=== PATIENT | male | born 1955 | race Caucasian/White ===

== ENCOUNTER 2016-09-20 13:06 | Observation (INO) | payer OTHER ==
--- NOTE | 2016-09-20 13:28 | CPEKG ---
Heart Rate: 58 RR Interval: 1034 P-R Interval: 220 QRSD Interval: 92 QT Interval: 424 QTC Interval: 417 P Emmet: -6 QRS Emmet: 9 T Wave Emmet: 12 EKG Severity - ABNORMAL ECG - EKG Impression: SINUS RHYTHM EKG Impression: FIRST DEGREE AV BLOCK Electronically Signed By: Volodymyr Tobin 20-Sep-2016 20:59:09
[2016-09-20 13:39] LABS: % IMMATURE GRANULYOCYTES 0.2 % (0.0-1.1); ABSOLUTE IMMATURE GRANULOCYTES 0.01 10^3/uL (0.00-0.10); ADD DIFF? NO; ADD MORPH? NO; ADD SCAN? NO; ATYPICAL LYMPHOCYTE FLAG 0 (0-99); FRAGMENT RBC FLAG 0 (0-99); HEMATOCRIT 34.2 % (40.0-51.0); LEFT SHIFT FLG 0 (0-99); LIPEMIA HEMOLYSIS FLAG 70 (0-99); MEAN CELL HEMOGLOBIN 21.3 pg (27.9-34.1); MEAN CELL HEMOGLOBIN CONCENTR. 29.2 g/dL (32.4-36.7); MEAN CELL VOLUME 72.8 fL (81.5-99.8); MEAN PLATELET VOLUME 9.2 fL (8.7-11.7); PLATELET CLUMPS FLAG 10 (0-99); PLATELET COUNT 307 10^3/uL (150-400); RED CELL DISTRIBUTION WIDTH 17.1 % (11.5-15.2)
[2016-09-20] MEDS ORDERED: NS 1,000 ML IV ONE (13:45)
--- NOTE | 2016-09-20 13:51 | EDPHY ---
H & P Stated Complaint: Vertigo this morning,sent from Dr Santana office for eval HPI/ROS: HPI CHIEF COMPLAINT: Lightheadedness, shortness of breath, dyspnea on exertion HISTORY OF PRESENT ILLNESS: This patient very pleasant 61-year-old male, significant past medical history for coronary artery disease with 3 stents, hyperlipidemia, he presents emergency room after being evaluated by his primary care doctor. States for the past week every time he goes to get up he feels lightheaded. He states this lasted about mid afternoon. When he describes lightheadedness he means that he feels like he is going to pass out. He denies chest pain. He has noticed more shortness of breath than normal. And some dyspnea on exertion. Denies pleuritic pain. Chest pain denies nausea, diaphoresis, numbness or tingling. Denies focal weakness. Denies headache or neck pain. Past Medical History: Coronary artery disease with stents, hyperlipidemia Past Surgical History: PTCA Social History: Denies daily use drugs alcohol tobacco products Family History: Noncontributory Primary care doctor Dr. Hector BENTLEY REVIEW OF SYSTEMS: A comprehensive 10 point review of systems is otherwise negative aside from elements mentioned in the history of present illness. Exam Constitutional appears well nontoxic triage nursing summary reviewed, vital signs reviewed, awake/alert. Eyes normal conjunctivae and sclera, EOMI, PERRLA. HENT normal inspection, atraumatic, moist mucus membranes, no epistaxis, neck supple/ no meningismus, no raccoon eyes. Respiratory clear to auscultation bilaterally, normal breath sounds, no respiratory distress, no wheezing. Cardiovascular rate normal, regular rhythm, no murmur, no edema, distal pulses normal. Gastrointestinal soft, non-tender, no rebound, no guarding, normal bowel sounds, no distension, no pulsatile mass. Genitourinary no CVA tenderness. Musculoskeletal no midline vertebral tenderness, full range of motion, no calf swelling, no tenderness of extremities, no meningismus, good pulses, neurovascularly intact. Skin pink, warm, & dry, no rash, skin atraumatic. Neurologic awake, alert and oriented x 3, AAOx3, moves all 4 extremities equally, motor intact, sensory intact, CN II-XII intact, normal cerebellar, normal vision, normal speech. Psychiatric normal mood/affect. Heme/Lymph/Immune no lymphadenopathy. Differential Diagnosis: Includes but is not limited: ACS, pulmonary embolism, pneumonia, pulmonary edema, volume overload, electrolyte disturbance, dehydration, infection Medical Decision Making: Plan for this patient full property assessment monitor, EKG, troponin, chest x-ray, D-dimer, BNP. Evaluate for lightheadedness and dyspnea on exertion. Re-evaluation: 1448: EKG interpretation by me on record in [employer] system. Impression time of EKG 1325, sinus rhythm rate of 58, first-degree AV block present. MT interval 220. However there is T-wave inversions in V1, V2 V3 that are new compared to previous EKGs. 1518: This patient has no chest pain but dyspnea on exertion and lightheadedness. With slight changes in his EKG with precordial leads V1 V2 V3 with biphasic T-waves that are new from his previous EKG. This patient will need to be admitted for chest pain evaluation and rule out. I will notify Cardiology. I spoke with Dr. Godwin who agrees to admit this patient. 1519: I did update the patient about his findings he is resting comfortably. He is agreeable for admission. He understands reason for admission dyspnea on exertion, EKG change. Source: Patient - Personal History Current Tetanus Diphtheria and Acellular Pertussis (TDAP): Yes - Medical/Surgical History Hx Asthma: No Hx Chronic Respiratory Disease: No Hx Diabetes: No Hx Cardiac Disease: Yes Hx Renal Disease: No Hx Cirrhosis: No Hx Alcoholism: No Hx HIV/AIDS: No Hx Splenectomy or Spleen Trauma: No Other PMH: HYPERLIPIDEMIA. heart stents x 3 in 2016 - Social History Smoking Status: Former smoker Constitutional: Initial Vital Signs Heart Rate 64 09/20/16 13:08 Respiratory Rate 18 09/20/16 13:08 Blood Pressure 151/87 H 09/20/16 13:08 O2 Sat (%) 97 09/20/16 13:08 O2 Delivery Mode Room Air Allergies/Adverse Reactions: No Known Allergies Allergy (Verified 09/20/16 13:07) Home Medications: Medication Instructions Recorded Aspirin [Aspirin 81mg (*)] 81 mg PO DAILY #30 tab 05/25/15 Atorvastatin Calcium [Lipitor 40 40 mg PO DAILY #30 tab 05/25/15 mg (*)] Metoprolol Tartrate [Lopressor 25 25 mg PO BID #60 tab 03/03/16 mg (*)] Prasugrel HCl [Effient 10mg (*)] 10 mg PO DAILY #30 tab 05/25/15 Medical Decision Making - Diagnostics Imaging Results: Imaging Impressions Chest X-Ray 09/20/16 13:45 Impression: Chronic large hiatal hernia. - Data Points Laboratory Results: Laboratory Results 09/20/16 13:26 09/20/16 13:26 09/20/16 09/20/16 09/20/16 13:37 13:26 13:26 WBC 6.65 10^3/uL 10^3/uL (3.80-9.50) RBC 4.70 10^6/uL 10^6/uL (4.40-6.38) Hgb 10.0 g/dL L g/dL (13.7-17.5) Hct 34.2 % L % (40.0-51.0) MCV 72.8 fL L fL (81.5-99.8) MCH 21.3 pg L pg (27.9-34.1) MCHC 29.2 g/dL L g/dL (32.4-36.7) RDW 17.1 % H % (11.5-15.2) Plt Count 307 10^3/uL 10^3/uL (150-400) MPV 9.2 fL fL (8.7-11.7) Neut % (Auto) 50.8 % % (39.3-74.2) Lymph % (Auto) 34.4 % % (15.0-45.0) Elbert % (Auto) 12.2 % % (4.5-13.0) Eos % (Auto) 2.1 % % (0.6-7.6) Baso % (Auto) 0.3 % % (0.3-1.7) Nucleat RBC Rel Count 0.0 % % (0.0-0.2) Absolute Neuts (auto) 3.38 10^3/uL 10^3/uL (1.70-6.50) Absolute Lymphs (auto) 2.29 10^3/uL 10^3/uL (1.00-3.00) Absolute Monos (auto) 0.81 10^3/uL H 10^3/uL (0.30-0.80) Absolute Eos (auto) 0.14 10^3/uL 10^3/uL (0.03-0.40) Absolute Basos (auto) 0.02 10^3/uL 10^3/uL (0.02-0.10) Absolute Nucleated RBC 0.00 10^3/uL 10^3/uL (0-0.01) Immature Gran % 0.2 % % (0.0-1.1) Immature Gran # 0.01 10^3/uL 10^3/uL (0.00-0.10) PT INR APTT D-Dimer Sodium 136 mEq/L mEq/L (134-144) Potassium 4.3 mEq/L mEq/L (3.5-5.2) Chloride 103 mEq/L mEq/L (97-110) Carbon Dioxide 23 mEq/l mEq/l (22-31) Anion Gap 10 mEq/L mEq/L (8-16) BUN 16 mg/dL mg/dL (7-23) Creatinine 0.8 mg/dL mg/dL (0.7-1.3) Estimated GFR > 60 Glucose 82 mg/dL mg/dL (70-100) Calcium 9.4 mg/dL mg/dL (8.5-10.4) Magnesium Total Bilirubin Conjugated Bilirubin Unconjugated Bilirubin AST ALT Alkaline Phosphatase Creatine Kinase CK-MB (CK-2) Fraction Troponin I NT-Pro-B Natriuret Pep 65 pg/mL pg/mL (0-125) Total Protein Albumin Lipase 09/20/16 09/20/16 13:24 13:24 WBC RBC Hgb Hct MCV MCH MCHC RDW Plt Count MPV Neut % (Auto) Lymph % (Auto) Elbert % (Auto) Eos % (Auto) Baso % (Auto) Nucleat RBC Rel Count Absolute Neuts (auto) Absolute Lymphs (auto) Absolute Monos (auto) Absolute Eos (auto) Absolute Basos (auto) Absolute Nucleated RBC Immature Gran % Immature Gran # PT 12.8 SEC SEC (12.0-15.0) INR 0.97 (0.83-1.16) APTT 25.8 SEC SEC (23.0-38.0) D-Dimer < 0.27 ug/mLFEU ug/mLFEU (0.00-0.50) Sodium Potassium Chloride Carbon Dioxide Anion Gap BUN Creatinine Estimated GFR Glucose Calcium Magnesium 2.1 mg/dL mg/dL (1.6-2.3) Total Bilirubin 0.7 mg/dL mg/dL (0.1-1.4) Conjugated Bilirubin 0.4 mg/dL mg/dL (0.0-0.5) Unconjugated Bilirubin 0.3 mg/dL mg/dL (0.0-1.1) AST 34 IU/L IU/L (17-59) ALT 42 IU/L IU/L (21-72) Alkaline Phosphatase 93 IU/L IU/L (38-126) Creatine Kinase 182 IU/L IU/L (0-224) CK-MB (CK-2) Fraction 1.86 ng/mL ng/mL (0-3.19) Troponin I < 0.012 ng/mL ng/mL (0-0.034) NT-Pro-B Natriuret Pep 67 pg/mL pg/mL (0-125) Total Protein 7.2 g/dL g/dL (6.3-8.2) Albumin 4.3 g/dL g/dL (3.5-5.0) Lipase 208.0 IU/L IU/L (23-300) Medications Given: Discontinued Medications Sodium Chloride (Ns) 1,000 mls @ 0 mls/hr IV ONCE ONE; Wide Open PRN Reason: Protocol Stop: 09/20/16 13:46 Last Admin: 09/20/16 14:22 Dose: 1,000 mls Departure - Departure Disposition: Home, Routine, Self-Care Clinical Impression: DUNBAR (dyspnea on exertion) Condition: Good Referrals: López Traore MD [Primary Care Provider] - As per Instructions
[2016-09-20 13:57] LABS: ANION GAP 10 mEq/L (8-16); CALCIUM 9.4 mg/dL (8.5-10.4); CARBON DIOXIDE 23 mEq/l (22-31); CHLORIDE 103 mEq/L (97-110); CREATININE 0.8 mg/dL (0.7-1.3); GLOMERULAR FILTRATION RATE > 60; GLUCOSE 82 mg/dL (70-100); POTASSIUM 4.3 mEq/L (3.5-5.2); SODIUM 136 mEq/L (134-144)
[2016-09-20 13:58] LABS: ALANINE AMINOTRANSFERASE 42 IU/L (21-72); ALBUMIN 4.3 g/dL (3.5-5.0); ALKALINE PHOSPHATASE 93 IU/L (38-126); ASPARTATE AMINOTRANSFERASE 34 IU/L (17-59); BILIRUBIN,TOTAL 0.7 mg/dL (0.1-1.4); BILIRUBIN-CONJUGATED 0.4 mg/dL (0.0-0.5); BILIRUBIN-UNCONJUGATED 0.3 mg/dL (0.0-1.1); MAGNESIUM 2.1 mg/dL (1.6-2.3); TOTAL PROTEIN 7.2 g/dL (6.3-8.2)
[2016-09-20 14:04] LABS: INR 0.97 (0.83-1.16); PROTIME(PATIENT) 12.8 SEC (12.0-15.0)
[2016-09-20 14:05] LABS: APTT 25.8 SEC (23.0-38.0)
[2016-09-20 14:09] LABS: CREATINE KINASE-MB FRACTION 1.86 ng/mL (0-3.19); TROPONIN I < 0.012 ng/mL (0-0.034)
[2016-09-20] MEDS ORDERED: ONDANSETRON DISINTEGRATING 4 MG TAB PO PRN (15:14)
[2016-09-20] MEDS ORDERED: ACETAMINOPHEN 325 MG TAB PO PRN (15:14)
[2016-09-20] MEDS ORDERED: ONDANSETRON 4 MG/2 ML VIAL IVP PRN (15:14)
[2016-09-20] MEDS ORDERED: PNEUMOCOCCAL 0.5ML VACCINE VIAL IM ONE ×2 (17:12→19:00)
--- NOTE | 2016-09-20 19:18 | GHP ---
[f rep st] HISTORY AND PHYSICAL DATE OF ADMISSION: 09/20/2016 CHIEF COMPLAINT: Dizziness. HISTORY OF PRESENT ILLNESS: This is a 61-year-old male with a history of coronary artery disease, s valeria post stenting x3 in 2016, who presents with complaints of several days of dizziness that he no fidencio while at work with associated shortness of breath. 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 Patient reports, when he does sit down and rest, the symptoms do resolve. He has associated shortness of breath with this diz ziness. Denies any specific chest pain. Denies any arm pain, which was his anginal equivalent when he had his stents placed in 2016. The patient denies any lower extremity edema. He believes he has been eating and drinking adequately. His bowels have been moving normally. No blood in his stools or urine. Denies any headache. Denies any palpitations. Denies any vision changes. The patient has noted overall fatigue recently. In fact, he had some dizziness and pulled over his car on the side o f the road, took a nap and felt better. PAST MEDICAL HISTORY: 1. Coronary artery disease. 2. Obesity. 3. Hyperlipidemia. 4. BPH on tamsulosin. SOCIAL HISTORY: Negative for tobacco, alcohol or illicit drugs. FAMILY HISTORY: Positive for coronary disease on his mother's side. Several people with MIs in the ir 50s and 60s. ADVANCE DIRECTIVES: Patient is full cor, full tube. His would be his medical decisionmaker. REVIEW OF SYSTEMS: A 10-point review of systems is negative with the exception of that reported in the HPI. PHYSICAL EXAMINATION: VITAL SIGNS: Blood pressure 147/78, heart rate 55, respiratory rate 18, satu rating 95% on room air, 36.7. GENERAL: This is an obese appearing male, in no acute distress. HEEN T: Notable for moist mucous membranes. Eye exam is negative for any icterus. CARDIAC: Patient is regular rate and rhythm. PULMONARY: Clear to auscultation bilaterally. GASTROINTESTINAL: Positive bowel sounds. ABDOMEN: Soft and nontender in all 4 quadrants. MUSCULOSKELETAL: Negative for any lower extremity edema. SKIN: Negative for any rashes. NEUROLOGIC: The patient is alert and orien steve x3. PSYCHIATRIC: He is pleasant and cooperative on interview and examination. DATA: White count 6.6, hematocrit 34.2, platelets of 307, MCV is 72. The patient appears to be iro n deficient in 2016; will recheck his iron studies now. Creatinine is 0.8. Troponin is less than 0 .012. EKG, which I personally reviewed and interpreted, shows sinus rhythm, normal axis, biphasic T -wave in leads V1 and V2. Otherwise, no ST changes. Chest x-ray, which I personally reviewed and i nterpreted, shows no acute infiltrates or edema. ASSESSMENT AND PLAN: This is a 61-year-old male with a history of coronary artery disease presentin g with dizziness. 1. Acute dizziness. Certainly with his history, there is concern it could be an anginal equivalent . Agree with admitting for serial troponins and EKGs. I have written the patient for a Lexiscan nu clear stress in the morning. If the patient rules out, we will continue to follow on telemetry to r ule out any dysrhythmias as a cause for his dizziness. I do suspect there is a component that may be dehydration. The patient has received normal saline in the emergency department. He can continue to eat and drink normally. Orthostatic vital signs were checked in the emergency department and the patient does not appear orthostatic. Again, will follow after IV fluid resuscitation and serial tro ponins. 2. Coronary artery disease. Will continue patient's home medications without change. 3. Suspected iron deficiency. The patient is anemic with a low MCV. Will recheck iron studies in t he morning. May need supplementation. Could probably even receive IV while he is here, and will obv iously need appropriate age-related cancer screening. 4. Prophylaxis. Enoxaparin. 5. Diet. Cardiac. 6. Disposition. I expect in less than 2 midnights if the patient appropriately rules out overnight and has normal stress testing. I discussed the case with the emergency room physician. Patient wi ll be triaged to the PCU for cardiac monitoring and care. /[id number]/MODL
[2016-09-20] MEDS: METOPROLOL TARTRATE 25 MG TAB PO SCH (20:39)
[2016-09-20] MEDS ORDERED: CALCIUM CARBONATE 500 MG CHEWABLE TAB PO PRN (21:42)
--- NOTE | 2016-09-20 23:09 | HOSPPROG ---
Hospitalist Progress Note Assessment/Plan: Patient w/ asymptomatic runs of what appear to be NSVT on tele, self-limited, but > 15 beats, returns to NSR spontaneously. Repeat lytes in AM and get Echo. If patient w/ chest pain, will consider ACS and place on hep gtt, reassess for chest pain/SOB. Objective: Vital Signs Temp Pulse Resp BP Pulse Ox 36.6 C 59 L 16 102/68 93 09/20/16 22:54 09/20/16 22:54 09/20/16 22:54 09/20/16 22:54 09/20/16 22:54 09/19/16 09/20/16 09/21/16 05:59 05:59 05:59 Intake Total 1000 Balance 1000 PT 12.8 SEC (12.0-15.0) 09/20/16 13:24 INR 0.97 (0.83-1.16) 09/20/16 13:24 ICD10 Worksheet Patient Problems: Problems Problem Status Onset DUNBAR (dyspnea on exertion) Acute Chest pain radiating to arm Acute Chest pain with moderate risk of acute coronary syndrome Acute Elevated troponin Acute
[2016-09-21 04:33] LABS: % IMMATURE GRANULYOCYTES 0.3 % (0.0-1.1); ABSOLUTE IMMATURE GRANULOCYTES 0.02 10^3/uL (0.00-0.10); ADD DIFF? NO; ADD MORPH? NO; ADD SCAN? NO; ATYPICAL LYMPHOCYTE FLAG 10 (0-99); FRAGMENT RBC FLAG 20 (0-99); HEMATOCRIT 29.9 % (40.0-51.0); HEMOGLOBIN 8.8 g/dL (13.7-17.5); LEFT SHIFT FLG 0 (0-99); LIPEMIA HEMOLYSIS FLAG 70 (0-99); MEAN CELL HEMOGLOBIN 21.5 pg (27.9-34.1); MEAN CELL HEMOGLOBIN CONCENTR. 29.4 g/dL (32.4-36.7); MEAN CELL VOLUME 72.9 fL (81.5-99.8); MEAN PLATELET VOLUME 9.6 fL (8.7-11.7); PLATELET CLUMPS FLAG 0 (0-99); PLATELET COUNT 260 10^3/uL (150-400); RED CELL DISTRIBUTION WIDTH 17.2 % (11.5-15.2)
[2016-09-21 04:45] LABS: ANION GAP 10 mEq/L (8-16); CALCIUM 8.5 mg/dL (8.5-10.4); CARBON DIOXIDE 24 mEq/l (22-31); CHLORIDE 108 mEq/L (97-110); CREATININE 0.9 mg/dL (0.7-1.3); GLOMERULAR FILTRATION RATE > 60; GLUCOSE 75 mg/dL (70-100); POTASSIUM 4.4 mEq/L (3.5-5.2); SODIUM 142 mEq/L (134-144)
[2016-09-21 04:53] LABS: % SATURATION 5 % (20-55); TOTAL IRON BINDING CAPACITY 398 ug/dL (260-490)
[2016-09-21 05:55] LABS: FERRITIN - BCH 7.1 ng/mL (17.9-464.0)
[2016-09-21 06:19] LABS: TROPONIN I < 0.012 ng/mL (0-0.034)
[2016-09-21] MEDS: TAMSULOSIN HCL 0.4 MG CAP PO SCH (08:35)
[2016-09-21] MEDS: ASPIRIN 81 MG CHEWABLE TAB PO SCH (08:35)
[2016-09-21] MEDS: ATORVASTATIN CALCIUM 40 MG TAB PO SCH (08:35)
[2016-09-21] MEDS: METOPROLOL TARTRATE 25 MG TAB PO SCH ×2 (08:36→21:22)
[2016-09-21] MEDS: ENOXAPARIN 40 MG/0.4 ML SYR SC SCH (08:36)
[2016-09-21] MEDS ORDERED: Herbals/Supplements -Info Only PO SCH (09:00)
[2016-09-21] MEDS ORDERED: REGADENOSON 0.4 MG/5 ML SYR IVP ONE (10:03)
--- NOTE | 2016-09-21 10:49 | PDCARST ---
CAR Stress Test Results Type of Stress Test: Lexiscan stress test Indication: dizziness/shortness of breath Description of Procedure: After informed consent was obtained, pt was established to ECG, blood pressure, HR and oximetry monitoring. STRESS EKG AND HEMODYNAMIC DATA. Resting heart rate: 66 BPM. Resting ECG: SR with Tw abn. Resting blood pressure: 120/70 mmHg. O2 saturation at rest: 95%. Peak heart rate: 69 BPM. Peak blood pressure: 130/90 mmHg. Arrhythmias: none. Symptoms: The patient experienced no typical symptoms of angina during stress or recovery. Stress/Infusion ECG: Pt develops a rate-related LBBB. Stress/ infusion O2 saturation: 95% Impression: Tw abnormality on resting ECG and development of rate-related LBBB. Conclusion: Await nuclear images.
--- NOTE | 2016-09-21 11:50 | GCON ---
[f rep st] CONSULTATION CARDIOLOGY CONSULTATION. DATE OF CONSULTATION: 09/21/2016 REFERRING PHYSICIAN: Yareli Godwin MD INDICATION FOR CONSULTATION: Dizziness and dyspnea on exertion in the setting of known coronary artery disease. HISTORY OF PRESENT ILLNESS: The patient is a pleasant 61-year-old gentleman with a known history of coronary artery disease status post non ST-segment elevation myocardial infarction in May 2015 who underwent successful PCI x2 to the right coronary artery and x1 to the circumflex vessel in May 2015. Followup echocardiogram demonstrated normal left ventricular size and function. He also has a history of hyperlipidemia. The patient has been in his usual state of health until the last 3 months where he states he has noticed new onset of dyspnea on exertion with 2 flights of climbing stairs. He also notes new onset of progressive fatigue over the last 3 months as well. He has had no complaints of exertional chest pain, chest pressure, palpitations, PND, orthopnea, or lower extremity edema. Of note, his symptoms prior to his PCI last year were bilateral shoulder discomfort and substernal chest pain. He has experienced neither of these symptoms to date. Over the last 10 days, the patient has had 2 episodes of dizziness. Most recent episode occurred yesterday prompting him to seek medical attention at [facility]. 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 He developed onset of dizziness prompting him to stop work and return home. He denied any associated shortness of breath, nausea, vomiting, or diaphoresis. He denied any associated chest pain or chest pressure. He was seen as an outpatient at [facility] by Dr. Young. At that office appointment he was found to be hypertensive and in the setting of lightheadedness and coronary artery disease was instructed to present to [facility] for further evaluation. Currently, at the time of my exam, the patient is feeling well. He has no cardiac complaints. He has had no further episodes of dizziness. He states his dizziness resolved when he arrived at [facility]. His workup to date is notable for anemia. His hemoglobin was 10 on admission. He did receive a single liter of IV fluid in the emergency department. Hemoglobin this morning is 8.8 with hematocrit of 29.9. MCV is low at 72.9. Troponins have been unremarkable x3 at less than 0.012. BNP is normal at 65. His EKG demonstrates normal sinus rhythm with 1st degree AV block. Telemetry strips are notable for sinus rhythm with intermittent rate related left bundle branch block. He has had no dizziness with this. There is no evidence of ventricular tachycardia, atrial fibrillation or pauses. He has no previous history of left bundle branch block. I cannot find any evidence of left bundle branch block in his previous notes. He denies any personal history of having left bundle branch block. Currently, at the time of my exam, he is resting comfortably without complaint. PAST SURGICAL HISTORY: Coronary artery disease with NSTEMI in May 2015 with PCI x2 to the RCA and x1 to the circumflex. No significant coronary disease noted within the LAD and diagnostic left heart catheterization. PAST MEDICAL HISTORY: Also notable for hyperlipidemia, history of deviated septum status post repair, history of meniscus repair in December 2014. He does have symptoms consistent with GERD although he has never been formally diagnosed and admits to using Tums frequently. MEDICATIONS ON ADMISSION: Aspirin 81 mg daily. Atorvastatin 40 mg daily and metoprolol 25 mg p.o. b.i.d. ALLERGIES: He has no allergies to medications. FAMILY HISTORY: He does have family history of premature coronary artery disease. His brother had a history of coronary disease with PCI in his mid 50s. His sister, who is 61, just underwent coronary artery bypass graft surgery. His mother had stents at the age of 60. SOCIAL HISTORY: He is . He works for [employer]. He is a nonsmoker. He did smoke briefly over 30 years ago. He does not use illicit drugs. He does not exercise regularly. PHYSICAL EXAMINATION: On exam, his blood pressure is 117/74, heart rate of 66, in sinus rhythm. Respiratory rate of 18, oxygen saturation 92% on room air. Temperature 36.7. He is awake, alert, oriented, appropriate. In no acute distress. Weight is 101 kg. There is no evidence of JVP or carotid bruits. LUNGS: Clear to auscultation bilaterally. CARDIAC: S1, S2. Regular rate and rhythm. No murmurs, rubs, or gallops. ABDOMEN: Soft, nontender, nondistended. Abdominal aorta is not palpable. He has 2+ bilateral femoral artery pulses, 2+ posterior tibial and dorsalis pedis pulses bilaterally. There is no evidence of cyanosis clubbing or edema. DATA: Left heart catheterization May 2015, demonstrates significant disease within the circumflex vessel as well as RCA. He underwent successful PCI to the RCA x2 into the circumflex x1. He did have 30% residual disease in the ramus and no significant disease within the LAD. Echocardiogram May 2015, demonstrates normal left ventricular function with LVEF of 65% to 70%. No significant valvular abnormalities and normal right ventricular size and function. He does state he underwent a colonoscopy approximately 2-3 years ago at [facility]. Per his report there is no evidence of polyps and was told he did not need repeat colonoscopy for 10 years. Lab work demonstrates white blood cell count of 7.3, a hemoglobin of 8.8, hematocrit of 29.9, platelet count 260. MCV is low at 72.9. INR 0.97. Sodium 142, potassium 4.4, chloride 108, bicarb 24, BUN 14, creatinine 0.9, calcium 8.5 , magnesium 2.0, iron level is low at 21. Ferritin low at 7.1, iron saturation low at 5. Troponin less than 0.012 x3. Hepatic function normal. N-terminal proBNP normal at 65. EKG done September 20, 2016, demonstrates normal sinus rhythm at 58 beats per minute with first degree AV block, with RI interval of 220 milliseconds. QRS is within normal limits at 92 milliseconds. QT interval normal corrected with Bazett's formula at 417 milliseconds. There is nonspecific T-wave changes isolated to lead III. Telemetry demonstrates normal sinus rhythm with intermittent rate-related left bundle branch block. No evidence of ventricular tachycardia, atrial fibrillation or pauses. IMPRESSION: 1. New onset of dizziness. 2. New onset of rate related left bundle branch block. 3. New finding of iron deficiency anemia with hemoglobin of 8.8 and MCV of 72.9 , and low iron studies of unclear etiology. DISCUSSION: The patient is a pleasant 61-year-old gentleman with known 2- vessel coronary artery disease with percutaneous coronary intervention to the circumflex and right coronary artery in May 2015 with preserved left ventricular function who presents with a 3-month history of increasing fatigue and dyspnea on exertion, and new onset of dizziness with 2 isolated episodes of dizziness in the last 10 days prompting his admission to [facility]. Troponins have been negative x3. ECG demonstrates no evidence of ischemia. BNP is normal at 65. He does have new onset of rate-related left bundle. He has had no symptoms of dizziness, lightheadedness or fatigue with onset of left bundle. I would recommend at this point, pharmacologic nuclear stress test. I also think that he needs workup for his iron deficiency anemia despite having a normal colonoscopy 2 or 3 years ago. These findings are new. He does have a family history of colon cancer in his sister per his report. PLAN: 1. Continue current medications. 2. Pharmacologic nuclear stress test this morning. 3. Recommend GI consultation for workup for iron deficiency anemia. 4. We will continue to follow along with his care. 45 minutes spent coordinating care. /[id number]/MODL MTDD
[2016-09-21] MEDS ORDERED: GOLYTELY 4000 ML BTL PO ONE (12:27)
--- NOTE | 2016-09-21 12:32 | ECHO ---
[id number] + + [address] : : [place] [address] : : [phone] + + Adult Echocardiographic Report + -----+ :Name: Gato REDDY Date: 09/21/2016 11:18 AM : : Hospital Admission Number: [id number] Location : 206: :: 1955 Gender: Male Height: 67 in : :Age: 61 yrs Race: WH Weight: 224 lb : :Reason For Study: Eval LV Fx : : BSA: 2.1 meters2 : :History: Hx of Stents, new NSVT, Dizziness : + -----+ MMode/2D Measurements \T\ Calculations IVSd: 0.89 cm LVIDd: 5.4 cm FS: 40.0 % Ao root diam: 3.2 cm LVPWd: 1.0 cm LVIDs: 3.2 cm EDV(Teich): 139.7 ml ACS: 1.9 cm ESV(Teich): 41.7 ml LA dimension: 3.0 cm EF(Teich): 70.2 % Normal Measurement Values: + + :LVIDd (3.5-5.7cm) IVSd (0.6-1.1cm) LVPWd (0.6-1.1cm) Aortic Root (2.0-3.7cm)Left Atrium (1.5-4.0cm): :LV Vol(d) (76-115ml) LV Vol(s) (29-48ml) Ejec Fraction (50-65%)PV Scotty (0.6- 1.2m/s) TV Scotty (0.4-1.0m/s) : :MV E Scotty (0.8-1.0m/s)MV A Scotty (0.3-1.0m/s)LVOT Scotty (0.7-1.2m/s) Asc Ao Scotty ( 0.9-1.8m/s) : + + Doppler Measurements \T\ Calculations MV E max scotty: Ao V2 max: LV V1 max: PA V2 max: 84.4 cm/sec 168.3 cm/sec 113.0 cm/sec 99.1 cm/sec MV A max scotty: Ao max PG: LV V1 max PG: PA max P.1 cm/sec 11.3 mmHg 5.1 mmHg 3.9 mmHg MV E/A: 1.2 Left Ventricle The left ventricle is normal in size. There is normal left ventricular wall thickness. The left ventricular ejection fraction is normal. There is Doppler evidence for diastolic dysfunction. Ejection Fraction = 70%. The left ventricular wall motion is normal. Right Ventricle The right ventricle is normal in size and function. Atria The left atrium is mildly dilated. Right atrial size is normal. The interatrial septum is intact with no evidence for an atrial septal defect. Mitral Valve The mitral valve is normal in structure and function. There is no evidence of mitral valve prolapse. There is no mitral valve stenosis. There is no mitral regurgitation noted. Tricuspid Valve Normal tricuspid valve. There is trace tricuspid regurgitation. Right ventricular systolic pressure is normal. Aortic Valve The aortic valve is normal in structure and function. There is no aortic stenosis. There is no aortic insufficiency. Pulmonic Valve The pulmonic valve is normal in structure and function. There is no pulmonic valvular stenosis. There is no pulmonic valvular regurgitation. Great Vessels The aortic root is normal size. Pericardium/Pleural There is no pericardial effusion. Conclusion A complete two-dimensional transthoracic echocardiogram was performed (2D, M-mode, Doppler and color flow Doppler). The left ventricular ejection fraction is normal. There is Doppler evidence for diastolic dysfunction. Ejection Fraction = 70%. The left ventricular wall motion is normal. The right ventricle is normal in size and function. The mitral valve is normal in structure and function. There is trace tricuspid regurgitation. Right ventricular systolic pressure is normal. The aortic valve is normal in structure and function. There is no pericardial effusion. The left atrium is mildly dilated. Final Reading Physician: Donovan Hurtado electronically signed on 09/21/2016 12:31 PM Ordering Physician: Tony Frederick Performed By: Damion Issa, RDCS
--- NOTE | 2016-09-21 13:00 | GCON ---
[f rep st] CONSULTATION GASTROENTEROLOGY INPATIENT CONSULTATION. DATE OF CONSULTATION: 09/21/2016 CHIEF COMPLAINT: I was kindly requested to see Francisco by Dr. Isabel Rangel in consultation for a chief complaint of anemia. HISTORY OF PRESENT ILLNESS: He was admitted to the hospital with dizziness, fatigue, for several months, but worsening lately. He has also had some shortness of breath. He was found to have a hematocrit of 29.9%, iron saturation 5.1%, ferritin 7.1. In February of last year, his hematocrit was 43% . He denies melena, bright red blood per rectum, maroon stools. He does complain of somewhat significant heartburn daily, for which Tums helps. He can have occasional dysphagia. He last underwent a colonoscopy with [facility] approximately 4-5 years ago, according to the patient and his significant other. He states there were no polyps. In retrospect, he states his sister did not have colon cancer. He denies abdominal pain. He denies diarrhea and constipation. He denies any significant surgeries between February of last year and now. Starting several weeks ago, he was using indomethacin 3 times a day for a gout attack. Now, he is just using it once a day. This is a new medicine for him. He is otherwise on outpatient aspirin. He denies other nonsteroidals. PAST MEDICAL HISTORY: 1. As above. 2. Gout. 3. Coronary artery disease. 4. Elevated lipids. 5. BPH. 6. Otherwise, noncontributory. OUTPATIENT MEDICATIONS: Include the above. INPATIENT MEDICATIONS: Include aspirin, Lipitor, Lopressor and Flomax. ALLERGIES: No known drug allergies. SOCIAL HISTORY: Negative for tobacco. FAMILY HISTORY: Negative for similar anemia. REVIEW OF SYSTEMS: Positive pertinent review of systems as per my HPI. Otherwise, a complete review of systems is negative. PHYSICAL EXAMINATION: CONSTITUTIONAL: Well-developed gentleman, in no apparent distress. SKIN: Warm, dry. EYES: Pupils equal, round, react to light and accommodation. EARS, NOSE, MOUTH AND THROAT: Oropharynx without masses, moist mucosa. CARDIOVASCULAR: Normal S2, normal PMI. RESPIRATORY: Lungs clear to auscultation and percussion anteriorly. GASTROINTESTINAL: Abdomen somewhat profuse, soft. NEUROLOGIC: Grossly nonfocal, with cranial nerves grossly intact. PSYCHIATRIC: Orientation, insight appropriate. MUSCULOSKELETAL: Strength grossly normal throughout, with normal station. LABORATORIES: Include the above. MCV 72.9. Normal coags. Normal liver function tests. Normal electrolytes. ASSESSMENT: Iron deficiency anemia. New, since last February. Certainly, it could be due to gastrointestinal blood loss. In this regard, an upper gastrointestinal source is certainly possible, with his heartburn, recent use of indomethacin, etc. Otherwise, a colonic source, with his last colonoscopy being possibly up to 5 years ago, is certainly also possible. PLAN: 1. Upper endoscopy, colonoscopy tomorrow. We will use today to prep him for this. Of note, with his history of CAD, elevated lipids, recent gout, recent use of indomethacin, etc., he is at increased risk for these procedures. However, suspect the benefits outweigh the risks, and that he will do well. 2. Further management pending the above. Thank you for allowing me to help in the care of this patient. /[id number]/MODL MTDD
--- NOTE | 2016-09-21 17:36 | HOSPPROG ---
Hospitalist Progress Note Assessment/Plan: 1. Dizziness -neg cardiac labs/eval so far, ongoing, appreciate cardiology assistance, discussed care plan with Dr Hurtado. 2. Iron defic anemia -consult GI, discussed with Dr Terry, plan for egd/colonoscopy in AM. Consent for 2U PRBC from pt, transfuse today. may need heme/onc eval if neg GI eval. 3. Morbid obesity -says has o/p appt for sleep eval already scheduled FULL CODE, Dr Traore, 1-2 more mdnts depending upon eval Subjective: Denies n/v/d/change in BMs. + heartburn. No SOB/CP. Objective: Vital Signs Temp Pulse Resp BP Pulse Ox 97.7 F 68 18 117/78 95 09/21/16 15:54 09/21/16 15:54 09/21/16 15:54 09/21/16 15:54 09/21/16 15:54 Laboratory Results 09/21/16 03:20 09/21/16 03:20 09/20/16 09/21/16 09/22/16 11:59 11:59 11:59 Intake Total 1200 Balance 1200 PT 12.8 SEC (12.0-15.0) 09/20/16 13:24 INR 0.97 (0.83-1.16) 09/20/16 13:24 - Time Spent With Patient Time Spent with Patient: greater than 35 minutes Time Spent with Patient: Greater than 35 minutes spent on this patients care, greater than 50% of time spent counseling, educating, and coordinating care regarding the above mentioned plan. - Pending Discharge Pending Discharge Within 24 Hours: No Pending Discharge Within 48 Hours: Yes Pending Discharge Date: 09/24/16 Pending Discharge Time: 11:00 - Physical Exam Constitutional: no apparent distress, appears nourished, not in pain, obese Eyes: PERRL, anicteric sclera, EOMI Ears, Nose, Mouth, Throat: moist mucous membranes, hearing normal, ears appear normal, no oral mucosal ulcers Cardiovascular: regular rate and rhythym, no murmur, rub, or gallop, No edema Respiratory: no respiratory distress, no rales or rhonchi, clear to auscultation Gastrointestinal: normoactive bowel sounds, soft, non-tender abdomen, no palpable masses, No hepatosplenomegally, No guarding, No rebound Skin: no rashes or abrasions, no fluctuance, no induration Neurologic: sensation intact bilaterally, CN II-XII Intact Psychiatric: interacting appropriately, not anxious, not encephalopathic, thought process linear Lymph, Heme, Immunologic: no cervical LAD, no supraclavicular LAD ICD10 Worksheet Patient Problems: Problems Problem Status Onset DUNBAR (dyspnea on exertion) Acute Chest pain radiating to arm Acute Chest pain with moderate risk of acute coronary syndrome Acute Elevated troponin Acute
[2016-09-22 04:39] LABS: HEMOGLOBIN 11.6 g/dL (13.7-17.5); MEAN CELL HEMOGLOBIN 22.7 pg (27.9-34.1); MEAN CELL HEMOGLOBIN CONCENTR. 30.5 g/dL (32.4-36.7); MEAN CELL VOLUME 74.4 fL (81.5-99.8); RED BLOOD CELL COUNT 5.11 10^6/uL (4.40-6.38); RED CELL DISTRIBUTION WIDTH 17.7 % (11.5-15.2)
[2016-09-22 04:49] LABS: ANION GAP 11 mEq/L (8-16); CALCIUM 9.1 mg/dL (8.5-10.4); CARBON DIOXIDE 24 mEq/l (22-31); CHLORIDE 108 mEq/L (97-110); CHOLESTEROL 144 mg/dL (140-220); CHOLESTEROL/HDL RATIO 4.97 RATIO (1.00-4.97); CREATININE 0.8 mg/dL (0.7-1.3); GLOMERULAR FILTRATION RATE > 60; GLUCOSE 79 mg/dL (70-100); HIGH DENSITY LIPOPROTEIN 29 mg/dL (40-65); LDL/HDL RATIO 2.62 RATIO (1.00-3.64); LOW DENSITY LIPOPROTEIN 76 mg/dL (80-100); NON-HIGH DENSITY LIPOPROTEIN 115 mg/dL (90-129); POTASSIUM 4.5 mEq/L (3.5-5.2); SODIUM 143 mEq/L (134-144); TRIGLYCERIDE 195 mg/dL (40-150); VERY LOW DENSITY LIPOPROTEINS 39 mg/dL (8-25)
[2016-09-22] MEDS ORDERED: D5W 1/2 NS W/ 20 KCl/L 1,000 ML IV SCH (07:00)
[2016-09-22] MEDS ORDERED: MIDAZOLAM 2 MG/2 ML VIAL ONE (08:31)
[2016-09-22] MEDS ORDERED: fentaNYL 100 MCG/2 ML INJ ONE (08:31)
[2016-09-22 09:30] VITALS: O2SAT 96
[2016-09-22] MEDS ORDERED: PANTOPRAZOLE SODIUM 40 MG TAB PO SCH (09:30)
[2016-09-22 09:59] VITALS: BP 130/79; PULSE 53; RESP 16; TEMP 97.9
--- NOTE | 2016-09-22 10:07 | GPN ---
[f rep st] PROCEDURE NOTE DATE OF PROCEDURE: 09/22/2016 PROCEDURES: Upper endoscopy with dilation, biopsy, colonoscopy. INDICATIONS AND PRE-PROCEDURE DIAGNOSIS: Anemia. POSTPROCEDURE DIAGNOSES: 1. Upper endoscopy:. a. Moderately large hiatal hernia, with erosions at the base (Amauri lesions) . No active bleeding. b. Mild distal esophagitis, with a secondary stricture. Dilated fully, as below. 2. Colonoscopy:. a. Diverticulosis. b. Otherwise, unremarkable. PREMEDICATION: Fentanyl 100 mcg IV, Versed 3.5 mg IV. COMPLICATIONS: None. Of note, the total time of the procedure from sedation to procedure's end was 42 minutes. FINDINGS: After informed consent was obtained, the patient was placed in the left lateral decubitus position. Video upper endoscope was placed under direct visualization and advanced. The distal esophagus had some mild linear erythema , as well as some "whitish" raised areas. There was also a stricture at the GE junction, approximately 14 mm in aperture. There were several small traction diverticulum in the area. Biopsies were done of the whitish spots and the stricture. Dilation with an 18 mm balloon was performed, inflated to the recommended PSI for 1 minute. In the stomach, there was a moderately large hiatal hernia, type 1. At the base of the hiatal hernia sac were several erosions, nonbleeding. Rest of the stomach was normal. Biopsies were done of the antrum and cardia for H pylori. Duodenum was normal. Biopsies were done to rule out a selective iron deficiency sprue (doubt). The patient's gurney was then turned around. Video adult colonoscope was placed in the rectum advanced to the terminal ilium. Terminal ileum was normal. Upon slow withdrawal, diverticula were seen from 15 cm to 80 cm. No active bleeding seen. IMPRESSION: I suspect his iron deficiency anemia is due to the above hiatal hernia sac, which is moderately large, with some erosions at the base of his hiatal hernia sac. These are Amauri lesions, caused by the physical rubbing of the hiatal hernia up and down across the diaphragmatic os. This can result in some chronic slow blood loss. No active bleeding seen. I suspect this can be treated medically, without surgery. If we were to keep him on an iron pill daily long-term, as well as a PPI daily long-term, this most likely would offset any slow blood loss. PLAN: 1. We will let him eat. 2. Buff cap IV. 3. From a GI standpoint, okay to discharge home. Upon discharge, would recommend. a. Omeprazole 40 mg daily long-term. b. Iron tablet daily. c. Follow up with his PCP, with periodic hematocrits to make sure they remain stable. 4. I will sign off. I will follow up on his biopsies, but suspect will be unremarkable. Otherwise, please let me know if we can be of further help in the future. /[id number]/MODL MTDD
[2016-09-22] MEDS: ATORVASTATIN CALCIUM 40 MG TAB PO SCH (11:11)
[2016-09-22] MEDS: ASPIRIN 81 MG CHEWABLE TAB PO SCH (11:11)
[2016-09-22] MEDS: TAMSULOSIN HCL 0.4 MG CAP PO SCH (11:11)
[2016-09-22] MEDS: ENOXAPARIN 40 MG/0.4 ML SYR SC SCH (13:19)
[2016-09-22] MEDS: METOPROLOL TARTRATE 25 MG TAB PO SCH (13:19)
== END 2016-09-22 15:19 | disposition home or self-care (01) ==
LOC: F2W 16:07
PROVIDERS: ADMIT Hospitalist; ATTEND Hospitalist
PROC: 0DJD8ZZ Inspection of Lower Intestinal Tract, Via Natural or Artificial Opening Endoscopic (ICD-10-PCS; principal; 2016-09-20)
PROC: 0DB58ZX Excision of Esophagus, Via Natural or Artificial Opening Endoscopic, Diagnostic (ICD-10-PCS; principal; 2016-09-20)
DX: I44.7 Left bundle-branch block, unspecified (principal); I25.10 Atherosclerotic heart disease of native coronary artery without angina pectoris; D50.9 Iron deficiency anemia, unspecified; K44.9 Diaphragmatic hernia without obstruction or gangrene; E78.5 Hyperlipidemia, unspecified; E66.01 Morbid (severe) obesity due to excess calories
CPT/HCPCS: 43198; 45378; 71010; 78452; 90471; 93005; 93017; 93306; 96360; 99285; A9500; C1726; G0378; P9016; P9021; G0009; J1650; J2250; J2785; J3010